=== PATIENT | male | born 1995 | race Caucasian/White ===

== ENCOUNTER → 2020-03-20 | Outpatient (CLI) | payer BC ==
--- NOTE | 2020-03-20 16:28 | Diagnostic Imaging Report ---
INDICATION: Knee pain. COMPARISON: None. FINDINGS: Three views of the left knee joint demonstrate no acute fracture or dislocation. No focal osseous lesions are seen. No significant joint effusion is seen. The surrounding soft tissue structures are unremarkable. There are no radiopaque foreign bodies. IMPRESSION: 1. No acute fractures or dislocations of the left knee joint. Dictated by: Dictated on workstation # [id number]
== END ==
LOC: RAD FS 15:44
PROVIDERS: ATTEND Nurse Practitioner Family
DX: M25.562 Pain in left knee (principal); R22.42 Localized swelling, mass and lump, left lower limb
CPT/HCPCS: 73562

== ENCOUNTER 2021-04-12 16:32 | Emergency (ER) | payer BC, OTHER ==
[~2021-04-12] VITALS: Ht 182 cm; Wt 124.0 kg
[2021-04-12] MEDS ORDERED: fentaNYL INJ 100 MCG/2 ML AMP IVP STA (16:53)
[2021-04-12] MEDS ORDERED: KETOROLAC 30 MG/ML VIAL IVP STA (16:53)
[2021-04-12] MEDS ORDERED: LIDOCAINE 1% INJ 20 ML 20 ML VIAL INJ STA (16:53)
[2021-04-12] MEDS ORDERED: ceFAZolin INJECTION 1,000 MG in WATER (STERILE) FOR INJECTION 10 ML IV STA (16:55)
[2021-04-12] MEDS ORDERED: AUGMENTIN 875 MG TAB (AMOXICILLIN/CLAVULANATE) PO STA (16:55)
--- NOTE | 2021-04-12 17:14 | Diagnostic Imaging Report ---
CLINICAL HISTORY: Dog bite. COMPARISON: None. TECHNIQUE: Two views of the right forearm. FINDINGS: There is no acute fracture or dislocation of the right forearm. Alignment is anatomic. The imaged joint spaces are preserved. Edema and soft tissue laceration is seen in the proximal aspect of the right forearm. No radiopaque foreign body is seen. IMPRESSION: 1. No acute fracture or dislocation in the right forearm. 2. Edema and soft tissue laceration in the proximal aspect of the right forearm. No radiopaque foreign body. Dictated by: Dictated on workstation # [id number]
--- NOTE | 2021-04-12 17:17 | ED General ---
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 THE ARMS HAVE MULTIPLE PUNCTURE WOUNDS. Source of Information: Patient History of Present Illness Date Seen by Provider: Apr 12, 2021 Time Seen by Provider: 16:36 Initial Comments 26 yo male presenting with multiple puncture wounds and lacerations due to dog bites. 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 Pt is right hand dominant. He is unsure of his last tetanus booster. He denies any allergies to medicines. He does take Omeprazole for GERD/Heartburn Timing/Duration: 1/2 Hour Severity: Severe Modifying Factors: worse with Movement Associated Systoms: No Cough, No Diaphoresis, No Fever/Chills, No Headaches, No Nausea/Vomiting, No Seizure, No Shortness of Air Allergies and Home Medications Allergies Coded Allergies: No Known Drug Allergies (Unverified , 04/12/21) Patient Home Medication List Home Medication List Reviewed: Yes Amoxicillin/Potassium Clav (Amox Tr-K Clv 875-125 mg Tab) 1 Each Tablet, 1 EACH PO BID Prescribed by: JAIDA GREGORY on 04/12/211850 Ibuprofen (Ibuprofen) 800 Mg Tablet, 800 MG PO Q8H PRN for PAIN Prescribed by: JAIDA GREGORY on 04/12/211850 Review of Systems Review of Systems Constitutional: see HPI EENTM: no symptoms reported Respiratory: no symptoms reported Cardiovascular: no symptoms reported Gastrointestinal: no symptoms reported Genitourinary: no symptoms reported Musculoskeletal: see HPI Skin: see HPI Psychiatric/Neurological: Tingling (in both arms) Past Gdhpltd-Unokro-Zwocfe Hx Patient Social History Tobacco Use?: No Use of E-Cig and/or Vaping dev: No Substance use?: No Alcohol Use?: No Pt feels they are or have been: No Past Medical History Gastrointestinal: Yes Gastroesophageal Reflux Physical Exam Vital Signs Vital Signs - First Documented 04/12/21 16:40 Temp 36.2 Pulse 73 Resp 18 B/P (MAP) 129/64 (85) Pulse Ox 96 O2 Delivery Room Air Capillary Refill : Less Than 3 Seconds Height, Weight, BMI Height: '" Weight: lbs. oz. kg; 37.00 BMI Method: General Appearance: Anxious, Moderate Distress, Obese HEENT: PERRL/EOMI, Pharynx Normal Neck: Full Range of Motion, Normal Inspection, Non Tender, Supple Respiratory: Chest Non Tender, Lungs Clear, Normal Breath Sounds, No Accessory Muscle Use, No Respiratory Distress Cardiovascular: Regular Rate, Rhythm, Normal Peripheral Pulses Gastrointestinal: Normal Bowel Sounds, No Pulsatile Mass, Non Tender, Soft Rectal: Deferred Neurologic/Psychiatric: Alert, Oriented x3, administrative support coordinator II-XII Norm as Tested Skin: Warm/Dry, Other (multiple lacerations on arms and right nipple. multiple puncture wounds on arms and 1 on right thigh) Procedures/Interventions Wound Location: Trunk (right breast/areola) Wound Length (cm): 5 Wound's Depth, Shape: irregular, flap, contused tissue, sub Q Wound Explored: contaminated Irrigated w/ Saline (ccs): 50 Betadine Prep?: Yes Anesthesia: 1% Lidocaine Volume Anesthetic (ccs): 4 Suture: Ethlion Suture Size: 5-0 Number of Sutures: 3 Layer Closure?: 1 Sterile Dressing Applied?: Yes Progress After obtaining verbal consent from the patient the wound was anesthetized with 1% plain lidocaine. A total of 3 mL were infiltrated. The wound was then further cleaned and scrubbed with Betadine and sterile water. Then using 5-0 Ethilon a total of 3 simple interrupted stitches were used to try and approximate the macerated tissue and flap back to the rest of his areola and nipple. Wound edges were loosely approximated to allow for drainage if it became present since it was from a dog bite. Counseled on follow-up and return precautions. Advised to have stitches out in 10 to 14 days or around April 25. Take Augmentin to help prevent infection. Follow-up through work comp for wound check and management. Wound Location: Upper Extremities (Left forearm) Wound Length (cm): 1.4 Wound's Depth, Shape: linear, contused tissue, sub Q Wound Explored: contaminated Irrigated w/ Saline (ccs): 50 Betadine Prep?: Yes Anesthesia: 1% Lidocaine Volume Anesthetic (ccs): 1 Suture: Ethlion Suture Size: 4-0 Number of Sutures: 1 Layer Closure?: 1 Wound Location: Upper Extremities (Left forearm) Wound Length (cm): 0.8 Wound's Depth, Shape: linear, contused tissue, sub Q Wound Explored: contaminated Irrigated w/ Saline (ccs): 50 Betadine Prep?: Yes Anesthesia: 1% Lidocaine Suture: Ethlion Suture Size: 4-0 Number of Sutures: 1 Layer Closure?: 1 Sterile Dressing Applied?: Yes Wound Location: Upper Extremities (Left forearm) Wound Length (cm): 1.8 Wound's Depth, Shape: linear, contused tissue, sub Q Wound Explored: contaminated Irrigated w/ Saline (ccs): 50 Betadine Prep?: Yes Anesthesia: 1% Lidocaine Volume Anesthetic (ccs): 2 Suture: Ethlion Suture Size: 4-0 Number of Sutures: 1 Layer Closure?: 1 Sterile Dressing Applied?: Yes Wound Location: Upper Extremities (Left forearm) Wound Length (cm): 1.3 Wound's Depth, Shape: linear, contused tissue, sub Q Wound Explored: contaminated Irrigated w/ Saline (ccs): 50 Betadine Prep?: Yes Anesthesia: 1% Lidocaine Volume Anesthetic (ccs): 2 Suture: Ethlion Suture Size: 4-0 Number of Sutures: 1 Layer Closure?: 1 Sterile Dressing Applied?: Yes Wound Location: Upper Extremities (Right forearm) Wound Length (cm): 0.6 Wound's Depth, Shape: linear, contused tissue, sub Q Wound Explored: contaminated Irrigated w/ Saline (ccs): 50 Betadine Prep?: Yes Anesthesia: 1% Lidocaine Volume Anesthetic (ccs): 1 Wound Debrided: minimal (Small amount of protruding subcutaneous fat was excised and debrided) Suture: Ethlion Suture Size: 4-0 Number of Sutures: 1 Layer Closure?: 1 Sterile Dressing Applied?: Yes Wound Location: Upper Extremities (Right forearm) Wound Length (cm): 1.6 Wound's Depth, Shape: linear, contused tissue, sub Q Wound Explored: contaminated Irrigated w/ Saline (ccs): 50 Betadine Prep?: Yes Anesthesia: 1% Lidocaine Volume Anesthetic (ccs): 2 Suture: Ethlion Suture Size: 4-0 Number of Sutures: 1 Layer Closure?: 1 Sterile Dressing Applied?: Yes Wound Location: Upper Extremities (Right forearm) Wound Length (cm): 1.1 Wound's Depth, Shape: linear, contused tissue, sub Q Wound Explored: contaminated Irrigated w/ Saline (ccs): 50 Betadine Prep?: Yes Anesthesia: 1% Lidocaine Volume Anesthetic (ccs): 1 Suture: Ethlion Suture Size: 4-0 Number of Sutures: 1 Layer Closure?: 1 Sterile Dressing Applied?: Yes Wound Location: Upper Extremities (Right elbow) Wound Length (cm): 1.2 Wound's Depth, Shape: linear, contused tissue, sub Q Wound Explored: contaminated Irrigated w/ Saline (ccs): 50 Betadine Prep?: Yes Anesthesia: 1% Lidocaine Volume Anesthetic (ccs): 2 Suture: Ethlion Suture Size: 4-0 Number of Sutures: 1 Layer Closure?: 1 Sterile Dressing Applied?: Yes Wound Location: Upper Extremities (Right elbow) Wound Length (cm): 1.4 Wound's Depth, Shape: linear, contused tissue, sub Q Wound Explored: contaminated Irrigated w/ Saline (ccs): 50 Betadine Prep?: Yes Anesthesia: 1% Lidocaine Suture: Ethlion Suture Size: 4-0 Number of Sutures: 1 Layer Closure?: 1 Sterile Dressing Applied?: Yes Wound Location: Upper Extremities (Right elbow) Wound Length (cm): 1.3 Wound's Depth, Shape: linear, contused tissue, sub Q Wound Explored: contaminated Irrigated w/ Saline (ccs): 50 Betadine Prep?: Yes Anesthesia: 1% Lidocaine Volume Anesthetic (ccs): 2 Suture: Ethlion Suture Size: 4-0 Number of Sutures: 1 Layer Closure?: 1 Sterile Dressing Applied?: Yes After obtaining verbal consent from the patient each of the wounds on his arms were anesthetized with 1% plain lidocaine. Then using Betadine and sterile water they were cleaned. 4-0 Ethilon suture was used to place a single simple interrupted stitch in each of the lacerations to loosely approximate the wound edges so that they were not gaping. Patient tolerated procedures well without any immediate complications. He also had multiple smaller abrasions that were approximated using Steri-Strips. These were placed by the nurse. Then antibiotic ointment and sterile dressings were applied with pressure to help with bruising and swelling. Counseled on follow-up and return precautions. Advised to have stitches out on April 25. Wound check Wednesday or Loan. Take antibiotics to help prevent infection from the dog bites. Keep wounds clean with soap and water and reapply antibiotic ointment and dressings to help with healing. Progress/Results/Core Measures Suspected Sepsis SIRS Temperature: Pulse: 73 Respiratory Rate: 18 Blood Pressure 129 /64 Mean: 85 Results/Orders My Orders Orders - JAIDA GREGORY MD Ed Iv/Invasive Line Start (04/12/21 16:51) Forearm 2 View Right (04/12/21 16:51) Lidocaine 1% Inj 20 Ml (Xylocaine 1% Inj (04/12/21 16:53) Ketorolac Injection (Toradol Injection) (04/12/21 16:53) Fentanyl Inj (Sublimaze Injection) (04/12/21 16:53) Suture Set At Bedside (04/12/21 16:53) Cefazolin Injection (Ancef Injection) (04/12/21 16:55) Amoxicillin/Clavulanate Tablet (Augmenti (04/12/21 16:55) Tetanus/Diphtheria Inj (Adult) (Tenivac (04/12/21 18:30) Dipht,Pertuss(Acell),Tet Adult (Boostrix (04/12/21 18:45) Medications Given in ED Current Medications Medications Dose Ordered Sig/Ina Route Start Time Stop Time Status Last Admin Dose Admin Diphtheria/ Tetanus/Acell Pertussis 0.5 ml ONCE ONCE IM 04/12/21 18:45 04/12/21 18:46 DC 04/12/21 18:38 0.5 ML Vital Signs/I&O 04/12/21 04/12/21 16:40 18:49 Temp 36.2 36.2 Pulse 73 73 Resp 18 18 B/P (MAP) 129/64 (85) 129/64 Pulse Ox 96 96 O2 Delivery Room Air Room Air Capillary Refill : Less Than 3 Seconds Blood Pressure Mean: 85 Progress Note #1: Progress Note As patient stated he was having a lot of pain in the right forearm and was concerned that he may be had a fracture or bony injury x-rays were obtained to evaluate that. Also will place an IV to give IV antibiotic doses and pain medication. Will plan on using lidocaine to numb the wounds and then cleaned them with Betadine and sterile water. Then loosely approximate the edges of the wounds that are gaping open. Since he thinks it may have been more than 5 years for his last tetanus we will also update this. Give the first dose of Augmentin by mouth in addition to the IV dose of Ancef. Anticipate continuing Augmentin by mouth to help prophylactically prevent infection from the dog bites and puncture wounds Progress Note #2: Progress Note No fracture seen on the x-rays of the forearm. Proceed with cleaning and loosely approximating the wounds that were gaping open. Counseled on follow-up and return precautions. Advised to have stitches out on April 25. Wound check Wednesday or Wednesday with the clinic. Light duty with limited use of his arms and keep the wounds clean and dry until stitches out Diagnostic Imaging Diagonstic Imaging: Xray Plain Films/CT/US/NM/MRI: forearm Comments NAME: CODY ROCHA MED REC#: [id number] PT STATUS: REG ER : 1995 PHYSICIAN: JAIDA GREGORY MD ADMIT DATE: 04/12/21/ER FS Draft Date of Exam:04/12/21 FOREARM 2 VIEW RIGHT CLINICAL HISTORY: Dog bite. COMPARISON: None. TECHNIQUE: Two views of the right forearm. FINDINGS: There is no acute fracture or dislocation of the right forearm. Alignment is anatomic. The imaged joint spaces are preserved. Edema and soft tissue laceration is seen in the proximal aspect of the right forearm. No radiopaque foreign body is seen. IMPRESSION: 1. No acute fracture or dislocation in the right forearm. 2. Edema and soft tissue laceration in the proximal aspect of the right forearm. No radiopaque foreign body. Dictated on workstation # [id number] Dict: 04/12/21 1706 Trans: 04/12/21 1714 [facility] [id number] Interpreted by: ALIZA JUDD DO Electronically signed by: Reviewed: Reviewed by Me Departure Impression Primary Impression: Dog bite of multiple sites Additional Impressions: Crushing injury of right forearm, initial encounter Crushing injury of left forearm, initial encounter Laceration of breast, right, complicated Qualified Codes: S21.011A - Laceration without foreign body of right breast, initial encounter Disposition: 01 HOME, SELF-CARE Condition: Stable Departure-Patient Inst. Decision time for Depature: 18:50 Referrals: ANJELICA HUTSON DO (PCP/Family) Primary Care Physician Patient Instructions: Laceration Repair With Stitches ED, Animal Bites ED, Wound Care ED, Crush Injury (DC) Add. Discharge Instructions: Keep wounds clean and dry for first 24 hours. Elevate your arms above heart level to help with swelling, bruising and pain. May apply ice packs 15-20 minutes every few hours as needed for pain and bruising. Take antibiotics until gone to help prevent infection from the dog bites. Use ibuprofen 800 mg every 8 hours to help with pain and swelling May take acetaminophen 650 mg every 6 hours as needed for pain as well. Wound check on Wednesday or Wednesday to see how the bites and wounds are healing. Suture removal in 10-14 days or be seen sooner if having concerns for infection such as redness streaking up your arms or from the wounds, pus draining from the wounds, fever over 101 F All discharge instructions reviewed with patient and/or family. Voiced understanding. Scripts Ibuprofen (Ibuprofen) 800 Mg Tablet 800 MG PO Q8H PRN for PAIN for 10 Days, #30 TAB 0 Refills Prov: JAIDA GREGORY MD 04/12/21 Amoxicillin/Potassium Clav (Amox Tr-K Clv 875-125 mg Tab) 1 Each Tablet 1 EACH PO BID for dog bites for 10 Days, #20 TAB 0 Refills Prov: JAIDA GREGORY MD 04/12/21 Images Full Body/Extremities Full 1 - Abrasion, Contusion, Ecchymosis, Laceration (Macerated flap laceration to the right areola and nipple.) 2 - Abrasion, Contusion, Laceration (Multiple abrasions and lacerations with contusion to the forearm, and elbow) 3 - Abrasion, Contusion, Laceration (Multiple lacerations and abrasions with contusion to the forearm and elbow.) 4 - Abrasion, Contusion, Laceration (Multiple laceration and abrasions to the elbow and forearm) 5 - Abrasion, Contusion, Laceration (Multiple lacerations and abrasions with contusion to the elbow and forearm) 6 - Contusion, Puncture Wound (Small puncture wound with contusion to the right thigh) JAIDA GREGORY MD Apr 12, 2021 17:17
[2021-04-12] MEDS ORDERED: TETANUS & DIPHTHERIA TOX,ADULT 0.5 ML (TENIVAC) IM ONE (18:30)
[2021-04-12] MEDS ORDERED: TETANUS,DIPTH,PERTUSS P/F (BOOSTRIX) 0.5 ML VIAL IM ONE (18:45)
[2021-04-12 18:49] VITALS: BP 129/64
[2021-04-12] MEDS ORDERED: AMOX1TAB12 PO (18:51)
[2021-04-12] MEDS ORDERED: IBUP-1780 PO (18:51)
== END 2021-04-12 18:54 | disposition home or self-care (01) ==
LOC: EDUNIT# 16:32 → ER FS 16:33
DX: S21.011A Laceration without foreign body of right breast, initial encounter (principal); S57.82XA Crushing injury of left forearm, initial encounter; S57.81XA Crushing injury of right forearm, initial encounter; S71.151A Open bite, right thigh, initial encounter; S41.151A Open bite of right upper arm, initial encounter; S21.051A Open bite of right breast, initial encounter
CPT/HCPCS: 12002; 12032; 73090; 90471; 90715; 96374; 96375

== ENCOUNTER 2021-05-27 23:12 | Emergency (ER) | payer OTHER ==
[~2021-05-27 23:12] MED LIST: AMOX1TAB12 PO; IBUP-1780 PO
[2021-05-27] MEDS ORDERED: LIDOCAINE 1% INJ 20 ML 20 ML VIAL ONE (23:21)
[2021-05-27] MEDS ORDERED: AUGMENTIN 875 MG TAB (AMOXICILLIN/CLAVULANATE) PO STA (23:22)
[2021-05-27] MEDS ORDERED: oxyCODONE/APAP 5/325MG (PERCOCET 5) TABLET PO ONE (23:30)
[2021-05-27] MEDS ORDERED: LIDOCAINE 1% INJ 20 ML 20 ML VIAL INJ ONE (23:30)
[2021-05-27] MEDS ORDERED: IBUPROFEN 600 MG (MOTRIN) TAB PO ONE (23:30)
--- NOTE | 2021-05-27 23:30 | ED General ---
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 This is the second time the patient has presented to the ED for bug bites. He was treated last week with lacerations to his right arm. He completed antibiotics and had sutures removed. Current episode of pain is 10 out of 10. Timing/Duration: 1/2 Hour Severity: Severe Modifying Factors: improves with Other Associated Systoms: Other Allergies and Home Medications Allergies Coded Allergies: No Known Drug Allergies (Unverified , 04/12/21) Patient Home Medication List Home Medication List Reviewed: Yes Amoxicillin/Potassium Clav (Amox Tr-K Clv 875-125 mg Tab) 1 Each Tablet, 1 EACH PO BID Prescribed by: JAIDA GREGORY on 04/12/211850 Ibuprofen (Ibuprofen) 800 Mg Tablet, 800 MG PO Q8H PRN for PAIN Prescribed by: JAIDA GREGORY on 04/12/211850 Review of Systems Review of Systems Constitutional: see HPI Musculoskeletal: see HPI Psychiatric/Neurological: See HPI Past Ymomxof-Szponw-Mtfdts Hx Past Medical History Gastrointestinal: Yes Gastroesophageal Reflux Physical Exam Vital Signs Capillary Refill : Height, Weight, BMI Height: '" Weight: lbs. oz. kg; 37.00 BMI Method: General Appearance: Moderate Distress (Secondary to pain) Extremity: Other (4 cm, DEEP abrasion to left forearm with 4, 1-2 cm deep puncture wounds/lacerations to proximal. Bleeding is controlled.) Neurologic/Psychiatric: Alert, Oriented x3, No Motor/Sensory Deficits Focused Exam Sepsis Stage: Ruled Out Procedures/Interventions Suture Size: 4-0 Progress/Results/Core Measures Suspected Sepsis SIRS Temperature: Pulse: Respiratory Rate: Blood Pressure / Mean: Results/Orders My Orders Orders - SHOAIB ADHIKARI DO Oxycodone/Apap 5/325mg Tablet (Percocet (05/27/21 23:30) Ibuprofen Tablet (Motrin Tablet) (05/27/21 23:30) Amoxicillin/Clavulanate Tablet (Augmenti (05/27/21 23:22) Lidocaine 1% Inj 20 Ml (Xylocaine 1% Inj (05/27/21 23:21) Lidocaine 1% Inj 20 Ml (Xylocaine 1% Inj (05/27/21 23:30) Medications Given in ED Current Medications Medications Dose Ordered Sig/Ina Route Start Time Stop Time Status Last Admin Dose Admin Ibuprofen 600 mg ONCE ONCE PO 05/27/21 23:30 05/27/21 23:31 DC 05/27/21 23:28 600 MG Oxycodone/ Acetaminophen 1 tab ONCE ONCE PO 05/27/21 23:30 05/27/21 23:31 DC 05/27/21 23:27 1 TAB Vital Signs/I&O Capillary Refill : Departure Communication (Admissions) WoundS closed cleansed and bandaged. Antibiotics and pain medications given. Recommendations are continued supportive and therapeutic care with work comp follow-up. Return precautions reviewed. Impression Primary Impression: Animal bite of left forearm Disposition: HOME, SELF-CARE Condition: Stable Departure-Patient Inst. Decision time for Depature: 23:29 Referrals: REMIGIO EUBANKS APRN (PCP/Family) Primary Care Physician Patient Instructions: Animal and Human Bites Add. Discharge Instructions: Please keep wounds clean, covered, and dry and carefully monitor for signs of infection. Take antibiotic and pain medications as directed. Wear splint for comfort and follow-up with your work comp provider in 1 to 2 days. SHOAIB ADHIKARI DO May 27, 2021 23:30
[2021-05-27 23:40] VITALS: BP 142/95
[2021-05-27] MEDS ORDERED: OXYC1TAB87 PO (23:44)
[2021-05-27] MEDS ORDERED: IBUP-1773 PO (23:44)
[2021-05-27] MEDS ORDERED: AMOX-358 PO (23:44)
== END 2021-05-27 23:47 | disposition home or self-care (01) ==
LOC: EDUNIT# 23:12 → ER FS 23:14
DX: S51.852A Open bite of left forearm, initial encounter (principal); W54.0XXA Bitten by dog, initial encounter
CPT/HCPCS: 99283

== ENCOUNTER → 2022-01-02 | Outpatient (CLI) | payer BC ==
[~2022-01-02] MED LIST changes: +AMOX-358 PO; +IBUP-1773 PO; +OXYC1TAB87 PO
--- NOTE | 2022-01-02 17:29 | Diagnostic Imaging Report ---
INDICATION: Chronic knee pain, worsening onset of intermittent swelling. EXAMINATION: Left knee 01/02/2022 COMPARISON: 03/20/2020 3 views of the knee. FINDINGS: There is no evidence for an acute fracture or dislocation. The joint spaces are well maintained. There is no significant soft tissue swelling. IMPRESSION: No acute process. Dictated by: Dictated on workstation # [id number]
== END ==
LOC: RAD FS 17:11
PROVIDERS: ATTEND Nurse Practitioner Family
DX: M25.562 Pain in left knee (principal); G89.29 Other chronic pain
CPT/HCPCS: 73562